=== PATIENT | female | born 1960 | race Caucasian/White ===

== ENCOUNTER 2022-02-03 08:00 | Outpatient (CLI) | payer OTHER ==
--- NOTE | 2022-02-03 16:42 | XRAY Report ---
PROCEDURE: Knee 4 View LT INDICATIONS: LEFT KNEE PAIN TECHNIQUE: 4 views of the left knee(s) were acquired. COMPARISON: None. FINDINGS: Bones: No fractures or dislocations. No suspicious bony lesions. There is mild left medial and min imal to mild right medial compartment narrowing. Mild left patellofemoral compartment narrowing is pr esent. Minimal periarticular osteophytes are present most notably on the left. No erosions. There is mild lateral patellar subluxation. Soft tissues: No joint effusion. No suspicious soft tissue calcifications. IMPRESSION: Predominantly medial compartment osteoarthritic change bilaterally. Reviewed by: Johanny Armstrong MD on 02/03/2022 4:41 PM PDT Approved by: Johanny Armstrong MD on 02/03/2022 4:41 PM PDT Station ID: [id number]
== END 2022-02-03 23:59 | disposition home or self-care (01) ==
LOC: DI.S 08:00
PROVIDERS: ATTEND Physician Assistant
DX: M17.12 Unilateral primary osteoarthritis, left knee (principal)

== ENCOUNTER 2022-07-07 10:51 | Outpatient (CLI) | payer OTHER ==
--- NOTE | 2022-07-19 11:10 | Mammography Report ---
BILATERAL DIGITAL SCREENING MAMMOGRAM 3D/2D: 07/07/2022 CLINICAL: Routine screening. Family history of breast cancer. No prior exams were available for comparison. There are scattered areas of fibroglandular density in both breasts (category b / 25%-50% glandular t issue). No significant masses, calcifications, or other findings are seen in either breast. IMPRESSION: NEGATIVE There is no mammographic evidence of malignancy. A 1 year screening mammogram is recommended. This exam was interpreted at Station ID: [id number]. NOTE: For mammograms, a report in lay terms will be sent to the patient. Approximately 15% of breast malignancies will not be visualized mammographically. In the management of a palpable breast mass, a negative mammogram must not discourage biopsy of a clinically suspicious lesion. Electronically Signed By: Miguelito [email or web address]:07/19/2022 09:21:04 ACR BI-RADS Category 1: Negative 3341F PARENCHYMAL PATTERN: (A) - The breast(s) demonstrate(s) scattered fibroglandular densities. BI-RADS CATEGORY: (1) - 1 RECOMMENDATION: (ANNUAL) - Recommend routine annual screening mammography. [id number] 1 year screening LATERALITY: (B)
== END 2022-07-07 10:52 | disposition home or self-care (01) ==
LOC: DI.S 10:51
DX: Z12.31 Encounter for screening mammogram for malignant neoplasm of breast (principal); Z80.3 Family history of malignant neoplasm of breast

== ENCOUNTER 2022-09-24 13:15 | Outpatient (CLI) | payer OTHER | END 2022-09-24 13:16 | disposition critical access hospital (66) | LOC: EMS 13:15 | DX: R21 Rash and other nonspecific skin eruption (principal); K14.6 Glossodynia; R60.0 Localized edema; T49.4X5A Adverse effect of keratolytics, keratoplastics, and other hair treatment drugs and preparations, initial encounter | CPT/HCPCS: A0425; A0427 ==

== ENCOUNTER 2022-09-24 13:40 | Emergency (ER) | payer OTHER ==
[2022-09-24] MEDS ORDERED: DEXAMETHASONE 10 MG/ML VIAL IVP STA (13:48)
[2022-09-24] MEDS ORDERED: CETIRIZINE 10 MG TABLET PO STA (13:48)
--- NOTE | 2022-09-24 14:53 | ED Physician Documentation ---
PD HPI SKIN - Stated complaint Stated Complaint: ALLERGIC REACTION - Chief complaint Chief Complaint: Allergic Rx - History obtained from History obtained from: Patient, EMS (given IV benadryl enroute. No steroids nor Epi.) - History of Present Illness Timing - onset: How many minutes ago (30), Today Timing - details: Abrupt onset, Still present (slightly improving enroute from the peak of it.) Location: Scalp, Face, Neck, Chest (upper chest and shoulders area.) Quality / character: Itchy, Burning, Discolored (red), Swelling Associated symptoms: Myalgias. No: Fever, Joint pain, N/V/D Contributing factors: Other (she was getting hair dyed and had just started on the process with the chemical just on hair, when developed swelling/redness/rash/itching. Had mild feeling of tingling in throat but no edema nor dyspnea.) Similar symptoms before: Has not had sx before Recently seen: Not recently seen Review of Systems Constitutional: denies: Fever, Chills Nose: denies: Rhinorrhea / runny nose, Congestion Throat: denies: Sore throat Respiratory: denies: Cough Neurologic: denies: Focal weakness, Numbness, Near syncope, Headache PD PAST MEDICAL HISTORY - Past Medical History Cardiovascular: None, Other (is not on any SEBASTIEN Inhibotrs. ) Respiratory: None - Present Medications Home Medications: Ambulatory Orders Medication Instructions Recorded Confirmed Cetirizine [ZyrTEC] 10 mg PO BID #15 tablet 09/24/22 Duloxetine HCl [Cymbalta] 60 mg PO DAILY 09/24/22 09/24/22 Gabapentin [Neurontin] 3 tab PO DAILY PM 09/24/22 09/24/22 Phentermine HCl 0 mg PO DAILY 09/24/22 09/24/22 dexAMETHasone [Decadron] 4 mg PO DAILY #5 tablet 09/24/22 - Allergies Allergies/Adverse Reactions: Allergies Allergy/AdvReac Type Severity Reaction Status Date / Time No Known Drug Allergies Allergy Verified 09/24/22 13:49 PD ED PE NORMAL - Vitals Vital signs reviewed: Yes - General General: Alert and oriented X 3, No acute distress, Well developed/nourished - HEENT HEENT: Pharynx benign (no oral edema.), Other - Neck Neck: Supple, no meningeal sign, No adenopathy - Cardiac Cardiac: RRR, No murmur - Respiratory Respiratory: Clear bilaterally - Abdomen Abdomen: Soft, Non tender - Derm Derm: Warm and dry, Other (face, neck, shoulders and upper chest with edema, redness, swelling. ) Results - Vitals Vitals: Vital Signs - 24 hr 09/24/22 09/24/22 09/24/22 13:43 14:13 14:30 Temperature 36.6 C Heart Rate 80 82 80 Respiratory 12 12 13 Rate Blood Pressure 146/112 H 139/90 H 120/92 H O2 Saturation 99 99 96 Oxygen O2 Source Room air PD Medical Decision Making - ED course Complexity details: considered differential (arived by EMS stating symptoms were starting to fade already. given meds in ER and watched another hour or so without resurgence of symtpoms. Allergic reaction without anaphylactic. ), d/w patient Departure - Departure Disposition: 01 Home, Self Care Clinical Impression: Allergic contact dermatitis Qualifiers: Contact dermatitis trigger: dye Qualified Code(s): L23.4 - Allergic contact dermatitis due to dyes Condition: Stable Record reviewed to determine appropriate education?: Yes Instructions: ED Allergic Reaction Local Other Follow-Up: Rosanna Mondragon MD [Primary Care Provider] - Prescriptions: dexAMETHasone [Decadron] 4 mg PO DAILY #5 tablet Cetirizine [ZyrTEC] 10 mg PO BID #15 tablet Comments: Cool towels may help with some of the redness and swelling through the day. Keep your head and shoulders elevated when laying down to help reduce swelling as well. If this decreases and improves through the day back to normal then no further treatment necessarily needed. If you have some lingering redness or itchiness then you may need to redose with Benadryl every 6-8 hours. If persistent symptoms then add a long-acting antihistamine such as cetirizine along with Deca dron steroid daily for the next several days. Return if significantly worsening symptoms. Discharge Date/Time: 09/24/22 15:01
[2022-09-24 14:54] VITALS: BP 120/92
== END 2022-09-24 15:01 | disposition home or self-care (01) ==
LOC: EDUNIT# → ED 13:40
DX: L23.4 Allergic contact dermatitis due to dyes (principal)
CPT/HCPCS: 96374; 99284; A9270

== ENCOUNTER 2022-09-27 10:58 | Outpatient (CLI) | payer OTHER ==
[2022-09-27 14:22] LABS: BASOPHILS # (AUTO) 0.1 10^3/uL (0.0-0.1); EOSINOPHILS # (AUTO) 0.1 10^3/uL (0.0-0.7); EOSINOPHILS % (AUTO) 1.2 %; HCT - HEMATOCRIT 45.5 % (37.0-47.0); LYMPHOCYTES # (AUTO) 3.2 10^3/uL (1.5-3.5); LYMPHOCYTES % (AUTO) 41.6 %; MEAN CORPUSCULAR HEMOGLOBIN 32.6 pg (27.0-31.0); MEAN CORPUSCULAR VOLUME 98.9 fL (81.0-99.0); MEAN PLATELET VOLUME 10.2 fL (7.9-10.8); MONOCYTES # (AUTO) 0.6 10^3/uL (0.0-1.0); MONOCYTES % (AUTO) 7.7 %; NEUTROPHILS # (AUTO) 3.7 10^3/uL (1.5-6.6); NEUTROPHILS % (AUTO) 47.8 %; PLT - PLATELET COUNT 294 10^3/uL (130-450); RED CELL DISTRIBUTION WIDTH 12.3 % (12.0-15.0); WHITE BLOOD COUNT 7.7 x10^3/uL (4.8-10.8)
[2022-09-27 14:41] LABS: ESTIMATED AVERAGE GLUCOSE 128 mg/dL (70-100); HEMOGLOBIN A1c% 6.1 % (4.27-6.07)
[2022-09-27 14:46] LABS: ALBUMIN 4.2 g/dL (3.2-5.5); ALBUMIN/GLOBULIN RATIO 1.4 (1.0-2.2); BILIRUBIN,TOTAL 0.5 mg/dL (0.2-1.0); CALCIUM 9.3 mg/dL (8.5-10.3); CREATININE 0.7 mg/dL (0.4-1.0); POTASSIUM 3.8 mmol/L (3.5-5.0); TOTAL PROTEIN 7.3 g/dL (6.7-8.2)
[2022-09-27 14:54] LABS: THYROID STIMULATING HORMONE 5.64 uIU/mL (0.34-5.60)
[2022-09-27 14:56] LABS: FREE T4 (FREE THYROXINE) 0.78 ng/dL (0.58-1.64)
[2022-09-27 15:01] LABS: FERRITIN 735.3 ng/mL (11.0-306.8)
[2022-09-30 08:10] LABS: HDL-P (TOTAL) 35.6 umol/L (>=30.5); LDL SIZE 21.2 nm (>20.5); LDL-P 963 nmol/L (<1000); LP-INSULIN RESISTANCE SCORE 37 (<=45); SMALL LDL-P <90 nmol/L (<=527)
== END 2022-09-27 10:59 | disposition home or self-care (01) ==
LOC: LAB.S 10:58
PROVIDERS: ATTEND Physician Assistant Surgical
DX: M19.90 Unspecified osteoarthritis, unspecified site (principal); E66.9 Obesity, unspecified; G47.30 Sleep apnea, unspecified; N95.1 Menopausal and female climacteric states
CPT/HCPCS: 36415; 80053; 82306; 82607; 82728; 83036; 83525; 83540; 83704; 83970; 84425; 84439; 84443; 84466; 85025